=== PATIENT | male | born 1995 | race African-American/Black ===

== ENCOUNTER 2017-05-27 11:23 | Emergency (ER) | payer SELFPAY ==
[2017-05-27 11:38] VITALS: BP 140/86; PULSE 77; TEMP 98.3; BMI 24.3
--- NOTE | 2017-05-27 13:14 | PDOC ---
History of Present Illness - General Chief Complaint: Injury Stated Complaint: INJURY Time Seen by Provider: 05/27/17 12:14 History Source: Patient Exam Limitations: No Limitations - History of Present Illness Initial Comments: 05/27/17 13:05 Patient is a 21-year-old male, no significant medical history currently on no medication reports that he was playing football and was run into by another player pain to right anterior shoulder, reproduced more with range of motion. Full range of motion is noted, initially with no pain, pain developed now with reproducible pain only. Past Medical History: Denies. Allergies: No known allergies Medications: None Family History: Non-contributory Social History: Denies smoking, alcohol use, or IVDU Review of Systems GENERAL/CONSTITUTIONAL: No fever or chills. No weakness. No weight change. HEAD, EYES, EARS, NOSE AND THROAT: No change in vision. No ear pain or discharge. No sore throat. CARDIOVASCULAR: No chest pain or shortness of breath. RESPIRATORY: No cough, wheezing, or hemoptysis. GASTROINTESTINAL: No nausea, vomiting, diarrhea or constipation. No rectal bleeding. GENITOURINARY: No dysuria, frequency, or change in urination. MUSCULOSKELETAL: Right anterior reproducible shoulder pain. SKIN : No rash or easy bruising. NEUROLOGIC: No headache, vertigo, loss of consciousness, or loss of sensation. PSYCHIATRIC: No depression or anxiety. ENDOCRINE: No increased thirst. No abnormal weight change. HEMATOLOGIC/LYMPHATIC: No anemia, easy bleeding, or history of blood clots. ALLERGIC/IMMUNOLOGIC: No hives or skin allergy. No latex allergy. Physical Exam: GENERAL: The patient is awake, alert, and fully oriented, in no acute distress. HEAD: Normal with no signs of trauma. EYES: Pupils equal, round and reactive to light, extraocular movements intact, sclera anicteric, conjunctiva clear. ENT: Ears normal, nares patent, oropharynx clear without exudates. Moist mucous membranes. No uvula deviation NECK: Normal range of motion, supple without lymphadenopathy, JVD, or masses. LUNGS: Breath sounds equal, clear to auscultation bilaterally. No wheezes, and no crackles. HEART: Regular rate and rhythm, normal S1 and S2 without murmur, rub or gallop. ABDOMEN: Soft, nontender, normoactive bowel sounds. No guarding, no rebound. No masses. No bruising or abrasions MUSCULOSKELETAL: Normal range of motion, with associated pain to right shoulder. No edema. No clubbing or cyanosis. No cords, erythema, or tenderness. No CVA Tenderness with fist palpation. NEUROLOGICAL: Cranial nerves II through XII grossly intact. Normal speech, normal gait. SKIN: Warm, Dry, normal turgor, no rashes or lesions noted. 05/27/17 17:39 Past History - Past Medical History Allergies/Adverse Reactions: Allergies Allergy/AdvReac Type Severity Reaction Status Date / Time No Known Allergies Allergy Verified 05/27/17 11:38 Home Medications: Ambulatory Orders No Home Medications 0 dose .ROUTE UTDICT 04/26/12 Naproxen [Naprosyn -] 500 mg PO BID #14 tablet 05/27/17 Asthma: Yes - Suicide/Smoking/Psychosocial Hx Smoking Status: No Smoking History: Never smoked Number of Cigarettes Smoked Daily: 0 Information on smoking cessation initiated: No Hx Alcohol Use: No Drug/Substance Use Hx: Yes (occasional) Substance Use Type: None *Physical Exam - Vital Signs Last Vital Signs Temp Pulse Resp BP Pulse Ox 98.3 F 77 17 140/86 100 05/27/17 11:36 05/27/17 11:36 05/27/17 11:36 05/27/17 11:36 05/27/17 11:36 ED Treatment Course - RADIOLOGY Radiology Studies Ordered: Category Date Time Status SHOULDER-RIGHT [RAD] Stat Radiology 05/27/17 11:52 Completed Medical Decision Making - Medical Decision Making 05/27/17 13:08 A/P: Patient here for evaluation of injury to right shoulder, sent to x-ray x- ray demonstrated tach, clavicular separation injury probable grade 2. Spoke to Salvatore AHUMADA from Dr. Haynes's office who explained that injury is a painful injury will need to be discharged on anti-inflammatory, arm sling, to follow-up in office. I discussed the physical exam findings, ancillary test results and final diagnoses with the patient. I answered all of the patient's questions. The patient was satisfied with the care received and felt comfortable with the discharge plan and treatment plan. The patient will call to arrange follow-up and will return to the Emergency Department with any new, persistent or worsening symptoms. 05/27/17 17:43 *DC/Admit/Observation/Transfer Diagnosis at time of Disposition: Shoulder separation Qualifiers: Encounter type: initial encounter Laterality: right Qualified Code(s): S43.004A - Unspecified dislocation of right shoulder joint, initial encounter - Discharge Dispostion Disposition: HOME Condition at time of disposition: Good Admit: No - Prescriptions Prescriptions: Naproxen [Naprosyn -] 500 mg PO BID #14 tablet - Referrals Referrals: Bladimir Flanagan MD [Primary Care Provider] - Hadley Haynes MD [Staff Physician] - - Patient Instructions Printed Discharge Instructions: Shoulder Instability Additional Instructions: 1. Please return to the emergency department with any redness, swelling, increased pain, or any other concerns. 2. Keep arm sling on. 3. Please follow up in the office of Dr. Haynes within a week if pain persists. 4. No weightbearing 5. Ice and elevate when at rest. 6. Naprosyn for pain - Post Discharge Activity Forms/Work/School Notes: Back to Work
== END 2017-05-27 13:23 | disposition home or self-care (01) ==
LOC: JERFT 11:23
DX: S43.004A Unspecified dislocation of right shoulder joint, initial encounter (principal); W50.0XXA Accidental hit or strike by another person, initial encounter; Y93.61 Activity, american tackle football; Y92.321 Football field as the place of occurrence of the external cause; Y99.8 Other external cause status
CPT/HCPCS: 73030-TC-RT; 99281-25

== ENCOUNTER 2021-07-04 16:22 | Emergency (ER) | payer OTHER ==
[2021-07-04 16:35] VITALS: BP 125/65; PULSE 95; TEMP 98.2; BMI 25.5
[2021-07-04] MEDS ORDERED: METHOCARBAMOL 500 MG TABLET PO ONE (17:33)
[2021-07-04] MEDS ORDERED: KETOROLAC TROMETHAMINE 30 MG/1 ML VIAL IM ONE (17:33)
[2021-07-04] MEDS ORDERED: METHOCARBAMOL 500 MG TABLET ONE (17:38)
[2021-07-04] MEDS ORDERED: KETOROLAC TROMETHAMINE 30 MG/1 ML VIAL ONE (17:38)
== END 2021-07-04 17:56 | disposition home or self-care (01) ==
LOC: JERFT 16:22
PROC: 3E0233Z Introduction of Anti-inflammatory into Muscle, Percutaneous Approach (ICD-10-PCS; principal; 2021-07-04)
DX: S29.011A Strain of muscle and tendon of front wall of thorax, initial encounter (principal); X50.0XXA Overexertion from strenuous movement or load, initial encounter; Y93.67 Activity, basketball
CPT/HCPCS: 99284-25

== ENCOUNTER 2021-10-15 16:47 | Emergency (ER) | payer OTHER ==
[2021-10-15 16:58] VITALS: BP 127/76; PULSE 96; TEMP 97.8; BMI 26.9
[2021-10-15] MEDS ORDERED: ONDANSETRON 4 MG/2 ML VIAL IVPUSH ONE (17:47)
[2021-10-15] MEDS ORDERED: FAMOTIDINE 20 MG/50 ML IVPB 20 MG/50 ML MG IVPB ONE ×2 (17:47→18:06)
[2021-10-15] MEDS ORDERED: SODIUM CHLORIDE 0.9% 500 ML INFUS.BAG IV ONE (17:47)
[2021-10-15] MEDS ORDERED: ONDANSETRON 4 MG/2 ML VIAL ONE (18:06)
[2021-10-15 18:13] LABS: BASO % 0.2 % (0-2.0); HEMATOCRIT 47.8 % (35.4-49); HEMOGLOBIN 15.9 GM/dL (11.7-16.9); LYMPH % 2.8 % (8-40); MCH 28.1 pg (25.7-33.7); MCHC 33.3 g/dl (32.0-35.9); MEAN CELL VOLUME 84.5 fl (80-96); MONO % 1.6 % (3.8-10.2); NEUT % 95.4 % (42.8-82.8); PLATELET COUNT 288 10^3/uL (134-434); RBC 5.66 M/mm3 (4.00-5.60); RDW 13.4 % (11.9-15.9); WHITE BLOOD COUNT 9.6 K/mm3 (4.0-10.0)
[2021-10-15 18:15] LABS: PH,URINE 5.5 (5.0-8.0); URINE APPEARANCE CLOUDY; URINE BILIRUBIN NEGATIVE (NEGATIVE); URINE COLOR DK YELLOW; URINE GLUCOSE (UA) NEGATIVE (NEGATIVE); URINE KETONE 1+ (NEGATIVE); URINE LEUK ESTERASE NEGATIVE (NEGATIVE); URINE NITRITE NEGATIVE (NEGATIVE); URINE PROTEIN TRACE (NEGATIVE); URINE UROBILINOGEN 0.2 mg/dL (0.2-1.0)
[2021-10-15 18:31] LABS: CALCIUM 9.9 mg/dL (8.5-10.1)
[2021-10-15 18:32] LABS: ALBUMIN 5.1 g/dl (3.4-5.0)
[2021-10-15 18:35] LABS: CREATININE 1.2 mg/dL (0.55-1.3)
[2021-10-15 18:36] LABS: TOT PROT 8.5 g/dl (6.4-8.2)
[2021-10-15 18:37] LABS: BILIRUBIN,TOTAL 0.9 mg/dL (0.2-1)
[2021-10-15 19:13] LABS: ANISOCYTOSIS 1+; MACROCYTOSIS 0
[2021-10-15] MEDS ORDERED: METOCLOPRAMIDE HCL INJECTION 10 MG/2 ML VIAL IVPUSH ONE (19:43)
== END 2021-10-15 21:54 | disposition home or self-care (01) ==
LOC: JER 16:47
PROC: 3E033GC Introduction of Other Therapeutic Substance into Peripheral Vein, Percutaneous Approach (ICD-10-PCS; principal; 2021-10-15)
PROC: 3E033GC Introduction of Other Therapeutic Substance into Peripheral Vein, Percutaneous Approach (ICD-10-PCS; 2021-10-15)
PROC: 3E033GC Introduction of Other Therapeutic Substance into Peripheral Vein, Percutaneous Approach (ICD-10-PCS; 2021-10-15)
DX: R11.2 Nausea with vomiting, unspecified (principal); R19.7 Diarrhea, unspecified
CPT/HCPCS: 36415; 80053; 81003; 85025; 99284-25

== ENCOUNTER 2021-10-17 11:14 | Emergency (ER) | payer OTHER ==
[2021-10-17 11:46] VITALS: BP 126/83; PULSE 54; TEMP 98.2; BMI 26.9
[2021-10-17] MEDS ORDERED: ONDANSETRON *ODT* 4 MG TABLET SL ONE (12:14)
[2021-10-17] MEDS ORDERED: FAMOTIDINE 20 MG/50 ML IVPB 20 MG/50 ML MG IVPB ONE ×2 (12:14→12:28)
[2021-10-17] MEDS ORDERED: SODIUM CHLORIDE 0.9% 500 ML INFUS.BAG IV ONE (12:14)
[2021-10-17] MEDS ORDERED: ACETAMINOPHEN 1000 MG/100 ML BAG IVPB ONE (12:15)
[2021-10-17] MEDS ORDERED: ACETAMINOPHEN INJECTION 100 ML IVPB ONE (12:28)
[2021-10-17] MEDS ORDERED: ONDANSETRON *ODT* 4 MG TABLET ONE (12:28)
[2021-10-17] MEDS ORDERED: ONDANSETRON 4 MG/2 ML VIAL IVPUSH ONE (12:48)
[2021-10-17 13:10] LABS: BASO % 0.5 % (0-2.0); EOS % 0.1 % (0-4.5); HEMATOCRIT 42.2 % (35.4-49); HEMOGLOBIN 13.9 GM/dL (11.7-16.9); LYMPH % 15.4 % (8-40); MEAN CELL VOLUME 84.9 fl (80-96); MEAN PLT VOLUME 7.9 fl (7.5-11.1); MONO % 5.5 % (3.8-10.2); NEUT % 78.5 % (42.8-82.8); PLATELET COUNT 239 10^3/uL (134-434); RBC 4.97 M/mm3 (4.00-5.60); RDW 13.2 % (11.9-15.9); WHITE BLOOD COUNT 4.6 K/mm3 (4.0-10.0)
[2021-10-17] MEDS ORDERED: ONDANSETRON 4 MG/2 ML VIAL ONE (13:24)
[2021-10-17 13:32] LABS: ALBUMIN 4.1 g/dl (3.4-5.0); BLOOD UREA NITROGEN 12.8 mg/dL (7-18); MAGNESIUM 1.9 mg/dL (1.8-2.4)
[2021-10-17 13:34] LABS: CALCIUM 9.1 mg/dL (8.5-10.1)
[2021-10-17 13:35] LABS: CREATININE 1.1 mg/dL (0.55-1.3)
[2021-10-17 13:37] LABS: BILIRUBIN,TOTAL 0.5 mg/dL (0.2-1)
[2021-10-17] MEDS ORDERED: METOCLOPRAMIDE HCL INJECTION 10 MG/2 ML VIAL IVPUSH ONE (13:58)
[2021-10-17] MEDS ORDERED: METOCLOPRAMIDE HCL INJECTION 10 MG/2 ML VIAL ONE (14:16)
== END 2021-10-17 16:35 | disposition home or self-care (01) ==
LOC: JER 11:14
PROC: 3E0333Z Introduction of Anti-inflammatory into Peripheral Vein, Percutaneous Approach (ICD-10-PCS; principal; 2021-10-17)
PROC: 3E033GC Introduction of Other Therapeutic Substance into Peripheral Vein, Percutaneous Approach (ICD-10-PCS; 2021-10-17)
PROC: 3E033GC Introduction of Other Therapeutic Substance into Peripheral Vein, Percutaneous Approach (ICD-10-PCS; 2021-10-17)
PROC: 3E033GC Introduction of Other Therapeutic Substance into Peripheral Vein, Percutaneous Approach (ICD-10-PCS; 2021-10-17)
DX: K30 Functional dyspepsia (principal); R11.2 Nausea with vomiting, unspecified
CPT/HCPCS: 36415; 80053; 83690; 83735; 85025; 93005; 93010; 99284-25; Q0162

== ENCOUNTER 2023-08-20 20:35 | Emergency (ER) | payer OTHER ==
[2023-08-20 20:47] VITALS: RESP 18; BMI 26.2
[2023-08-20] MEDS ORDERED: SODIUM CHLORIDE 0.9% 500 ML INFUS.BAG IV ONE (22:44)
[2023-08-20] MEDS ORDERED: ONDANSETRON 4 MG/2 ML VIAL IVPB ONE (22:44)
[2023-08-20] MEDS ORDERED: FAMOTIDINE 20 MG/50 ML IVPB 20 MG/50 ML MG IVPB ONE ×2 (22:44→22:56)
[2023-08-20] MEDS ORDERED: ACETAMINOPHEN 1000 MG/100 ML BAG IVPB ONE (22:44)
[2023-08-20] MEDS ORDERED: ACETAMINOPHEN INJECTION 100 ML IVPB ONE (22:56)
[2023-08-20] MEDS ORDERED: ONDANSETRON 4 MG/2 ML VIAL ONE (22:56)
[2023-08-20 23:24] LABS: BASO % 0.3 % (0-2.0); EOS % 0.5 % (0-4.5); HEMATOCRIT 42.4 % (35.4-49); HEMOGLOBIN 13.5 GM/dL (11.7-16.9); LYMPH % 19.9 % (8-40); MCH 27.9 pg (25.7-33.7); MCHC 31.9 g/dl (32.0-35.9); MEAN CELL VOLUME 87.5 fl (80-96); MEAN PLT VOLUME 7.7 fl (7.5-11.1); MONO % 4.7 % (3.8-10.2); NEUT % 74.6 % (42.8-82.8); PLATELET COUNT 298 10^3/uL (134-434); RBC 4.84 M/mm3 (4.00-5.60); RDW 13.3 % (11.9-15.9); WHITE BLOOD COUNT 6.6 K/mm3 (4.0-10.0)
[2023-08-20 23:42] LABS: POTASSIUM 4.7 mmol/L (3.5-5.1)
[2023-08-20 23:43] LABS: ALBUMIN 4.1 g/dl (3.4-5.0); CALCIUM 9.1 mg/dL (8.5-10.1); MAGNESIUM 2.1 mg/dL (1.8-2.4)
[2023-08-20 23:46] LABS: PHOSPHOROUS 3.1 mg/dL (2.5-4.9)
[2023-08-20 23:48] LABS: BILIRUBIN,TOTAL 0.8 mg/dL (0.2-1); TOT PROT 7.5 g/dl (6.4-8.2)
[2023-08-21 00:09] VITALS: BP 117/81; PULSE 60; TEMP 98.8
[2023-08-21] MEDS ORDERED: METOCLOPRAMIDE HCL INJECTION 10 MG/2 ML VIAL IVPUSH ONE (00:57)
[2023-08-21] MEDS ORDERED: METOCLOPRAMIDE HCL INJECTION 10 MG/2 ML VIAL ONE (01:20)
== END 2023-08-21 02:01 | disposition home or self-care (01) ==
LOC: JER 20:35
PROC: 3E033GC Introduction of Other Therapeutic Substance into Peripheral Vein, Percutaneous Approach (ICD-10-PCS; principal; 2023-08-20)
PROC: 3E033GC Introduction of Other Therapeutic Substance into Peripheral Vein, Percutaneous Approach (ICD-10-PCS; 2023-08-20)
PROC: 3E033NZ Introduction of Analgesics, Hypnotics, Sedatives into Peripheral Vein, Percutaneous Approach (ICD-10-PCS; 2023-08-20)
PROC: 3E033GC Introduction of Other Therapeutic Substance into Peripheral Vein, Percutaneous Approach (ICD-10-PCS; 2023-08-21)
DX: K52.9 Noninfective gastroenteritis and colitis, unspecified (principal); R10.13 Epigastric pain; R11.10 Vomiting, unspecified; R63.8 Other symptoms and signs concerning food and fluid intake; M79.10 Myalgia, unspecified site; Z20.822 Contact with and (suspected) exposure to COVID-19
CPT/HCPCS: 0241U-QW; 36415; 74177-TC; 80053; 83690; 83735; 84100; 85025; 99285-25